=== PATIENT | female | born 1990 | race Caucasian/White ===

== ENCOUNTER 2023-06-09 12:52 | Emergency (ER) | payer OTHER, SELFPAY ==
[2023-06-09 12:55] VITALS: BP 110/75
[2023-06-09 13:21] LABS: % Basophils 0.4 % (0-2); % Eosinophils 0.1 % (0-6); % Immature Granulocytes 0.5 % (0-0.5); % Lymphocytes 5.5 % (20.5-51.1); % Monocytes 3.8 % (1.7-9.3); % Neutrophils 89.7 % (42.2-75.2); Absolute Lymphocytes 0.4 10^3/uL (1.2-3.4); Absolute Monocytes 0.3 10^3/uL (0.1-0.6); Absolute Neutrophils 6.6 10^3/uL (1.4-6.5); Hematocrit 33.3 % (37.0-47.0); Hemoglobin 11.6 g/dL (12.0-16.0); Mean Corp Hgb Conc. 34.8 g/dL (33.0-37.0); Mean Corpuscular Hgb 31.4 pg (27.0-31.0); Mean Corpuscular Volume 90.2 fL (81.0-99.0); Nucleated Red Blood Cells % 0 %; Platelet Count 162 10^3/uL (130-400); Red Blood Cell Count 3.69 10^6/uL (4.20-5.40); Red Cell Dist. Width 12.4 % (11.5-14.5); White Blood Cell Count 7.4 10^3/uL (4.8-10.8)
[2023-06-09 13:29] LABS: ALT (SGPT) 26 U/L (0-35); AST (SGOT) 28 U/L (14-36); Albumin 4.4 g/dl (3.5-5.0); Alkaline Phosphatase 52 U/L (38-126); Blood Urea Nitrogen 8 mg/dl (7-17); Calcium 8.8 mg/dl (8.4-10.2); Carbon Dioxide 21 mmol/L (22-30); Chloride 102 mmol/L (98-107); Glucose 110 mg/dl (70-99); Lipase 48 U/L (23-300); Potassium 3.9 mmol/L (3.5-5.1); Sodium 131 mmol/L (135-145); Total Bilirubin 0.7 mg/dl (0.2-1.3); eGFR > 60.00
--- NOTE | 2023-06-09 14:27 | ED.GENMED ---
History of Present Illness
General
Chief Complaint: Abdominal Symptoms
Source: patient
Exam Limitations: none
Time Seen by Provider: 06/09/23 14:18
Nursing documentation reviewed up to this point in time: agreed with
Travel History
Have you had any contact with someone who has COVID-19?: No
Do you have any symptoms of coronavirus? Fever > 100 degrees, chills, cough, shortness of breath, sore throat, loss of taste or smell, muscle aches, or headache?: No
History of Present Illness
History of Present Illness:
Patient is a 33-year-old woman who is 18 weeks and presents with vomiting that started at 4 AM this morning. Patient also has had mild diarrhea. She denies fever. She reports crampy upper abdominal pain. Patient denies headache and
rash. She denies sore throat. She denies sick contacts. 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
Past History
Past History
ED Past Medical History: Hypercholesterolemia
ED Past Surgical History:
Social History
Tobacco: Non-smoker
Alcohol: None
Drug: None
Personal:
Living: with family
Employment: Other
Family History
Family History: Early CAD
Review of Systems
Review of Systems
Allergies reviewed?: Yes
All Other Systems: ROS reviewed and negative except as documented in HPI and ROS
Constitutional: Reports no symptoms
EENT: Reports no symptoms
Respiratory: Reports no symptoms
Cardiac: Reports no symptoms
ABD/GI: Reports abdominal pain, nausea, vomiting and diarrhea
: Reports no symptoms
Musculoskeletal: Reports no symptoms
Skin: Reports no symptoms
Neurological: Reports no symptoms
Endocrine: Reports no symptoms
Hematologic/Lymphatic: Reports no symptoms
Psychiatric: Reports no symptoms
Phy Exam
Physical Exam
Physical Exam:
Physical Exam
General: no apparent distress, not acutely ill
Neck: supple. no meningeal signs. normal psoterior pharynx
Heart: s1/s2 regular rate and rhythm, no murmur. equal radial pulses.
Lungs: no acute respiratory distress. clear bilaterally
Abdomen: Gravid. Soft throughout. Mild epigastric tenderness. No rebound or guarding. No pulsatile mass. No periumbilical nor lower abdominal tenderness.
Neuro: alert and oriented. no focal neurological deficits
Skin: no rash
Psychiatric: well kept. interactive and cooperative
Extremities: no edema. no calf tenderness. negative homans. good distal pulses
Course
Orders/Labs/Results
Orders:
Orders
06/09/23 13:10
Complete Blood Count/With Diff Urgent
Comprehensive Metabolic Panel Urgent
Lipase Urgent
06/09/23 14:26
Urinalysis Reflex To Culture Urgent
Date Specimen was Collected: 06/09/23
Time Specimen was Collected: 14:27
Famotidine [Pepcid] 20 mg IV NOW STA
Ondansetron Injectable [Zofran] 4 mg IV NOW STA
06/09/23 14:27
US Abdomen Complete/Upper Urgent
Comment:
Reason For Exam: upper abdominal pain, vomiting
06/09/23 14:30
Heart Tones ONCE
Abnormal Lab Results
06/09/23
13:10
RBC 3.69 L 10^6/uL
(4.20-5.40)
Hgb 11.6 L g/dL
(12.0-16.0)
Hct 33.3 L %
(37.0-47.0)
MCH 31.4 H pg
(27.0-31.0)
MPV 11.0 H fL
(7.4-10.4)
Absolute Neuts (auto) 6.6 H 10^3/uL
(1.4-6.5)
Absolute Lymphs (auto) 0.4 L 10^3/uL
(1.2-3.4)
Neutrophils % 89.7 H %
(42.2-75.2)
Lymphocytes % 5.5 L %
(20.5-51.1)
Sodium 131 L mmol/L
(135-145)
Carbon Dioxide 21 L mmol/L
(22-30)
Creatinine 0.4 L mg/dL
(0.6-1.0)
Glucose 110 H mg/dl
(70-99)
06/09/23 13:10
06/09/23 13:10
Vital Signs
Initial and Last Documented VS:
Initial Vital Signs
Temp Resp BP Pulse Ox
98.9 F 18 110/75 98
06/09/23 12:55 06/09/23 12:55 06/09/23 12:55 06/09/23 12:55
Last Documented Vital Signs
Temp Pulse Resp BP Pulse Ox
98.9 F 84 18 118/74 99
06/09/23 12:55 06/09/23 16:19 06/09/23 16:19 06/09/23 16:19 06/09/23 16:19
MDM/Problems Addressed
Differential Diagnosis Includes:
Acute gastroenteritis, acute cholecystitis, bowel obstruction
MDM/Problems Addressed:
Patient presents with acute abdominal pain, nausea, vomiting and diarrhea
Chronic conditions affecting care: Previous abdomnial surgery
*Radiology
Radiology exam reviewed: radiology read reviewed
*Pulse Oximetry
Patient hypoxic: no
*EKG
Interpreted by ED Provider?: NA
*Certified Technician Specialist Interpretation
Rate: normal
Interpretation: normal
Rhythm: sinus
*Critical Care Note
Total Time (30-74mins, 75-104mins- exclusive of procedures): Not Applicable
Data Reviewed
Source: patient
Patient Management
Social determinants of health affecting care: Living situation and Strong social support
Escalation/DeEscalation of care consider admission/obs:
Patient states she feels much better. Her abdominal pain is nearly gone. Her pain is not right-sided in nature, therefore, I am not suspicious for acute appendicitis. Her abdomen remains very soft throughout and there is no sign of bowel
obstruction. Patient may have a gastroenteritis. Patient feels better and is happy to go home.
ED Attending Note
-
Portions of this chart may have been created with voice recognition software.� Occasional wrong word or��sound alike� substitutions may have occurred due to the inherent limitations of voice recognition software.
Discharge Plan
Departure
Patient Disposition: Home (Routine Discharge)
Date of Disposition: 06/09/23
Time of Disposition: 16:12
Patient with high blood pressure during this ER visit?: No
Condition: Good
Covid-19: Not Applicable
Discharge Problem:
Nausea & vomiting, Acute upper abdominal pain
Instructions: Mcdonough Diet, Nausea and Vomiting, Adult (DC), Abdominal Pain
Prescriptions:
New
ondansetron 4 mg tablet,disintegrating
4 mg PO TID PRN (Reason: nausea and vomiting) Qty: 14 0RF
No Action
metoprolol succinate [Toprol XL] 25 mg tablet extended release 24 hr
12.5 mg PO DAILY Qty: 20 0RF
Referrals:
Damián De Santiago PA-C [Family Provider] -
Interventions
Interventions:
*Risk Screen - Suicide Last Done: 06/09/23 12:56
*General Assessment Last Done: 06/09/23 12:56
*Neglect/Abuse Screening Last Done: 06/09/23 12:56
ED- Fall Risk Assessment Last Done: 06/09/23 13:44
*ED COVID-19 Vaccine History Last Done: 06/09/23 13:44
*Nursing Disposition Last Done: 06/09/23 16:21
GO-Grjsfl-Rakqsiydxg Assessment Last Done: 06/09/23 13:44
Discharge Date and Time
Discharge Date/Time: 06/09/23 16:33
[2023-06-09] MEDS: ZOFRAN 4 MG IV (14:37)
[2023-06-09] MEDS: PEPCID 20 MG IV (14:37)
[2023-06-09 14:59] VITALS: BP 112/71
[2023-06-09 16:19] VITALS: BP 118/74
== END 2023-06-09 16:33 | disposition home or self-care (01) ==
LOC: EMR 12:52
PROVIDERS: Emergency Medicine; EMERGENCY PHYSICIAN Emergency Medicine; FAMILY PHYSICIAN Physician Assistant Medical
DX: O26.892 Other specified pregnancy related conditions, second trimester (principal); Z3A.18 18 weeks gestation of pregnancy; O99.282 Endocrine, nutritional and metabolic diseases complicating pregnancy, second trimester; K92.1 Melena; R11.2 Nausea with vomiting, unspecified; R10.816 Epigastric abdominal tenderness; K60.2 Anal fissure, unspecified; E78.00 Pure hypercholesterolemia, unspecified
CPT/HCPCS: 99284; 96374; 96375; 76700; 80053; 83690; 85025